=== PATIENT | female | born 1965 | race Caucasian/White ===

== ENCOUNTER → 2020-06-09 11:17 | Outpatient (CLI) | payer BC, SELFPAY | PROVIDERS: PCP Family Medicine; Visit Provider Family Medicine | DX: Z20.828 Contact with and (suspected) exposure to other viral communicable diseases (principal); U07.1 COVID-19 | CPT/HCPCS: U0003 ==

== ENCOUNTER → 2021-09-19 08:19 | Outpatient (CLI) | payer BC, SELFPAY ==
[2021-09-19 13:10] LABS: Adenovirus,PCR Not Detected (NotDetected); Bordetella Pertussis Not Detected (NotDetected); Chlamydophila Pneumoniae, PCR Not Detected (NotDetected); Coronavirus 19, PCR Not Detected (NotDetected); Coronavirus NL63 Not Detected (NotDetected); Coronavirus OC43 Not Detected (NotDetected); Coronovirus HKU1,PCR Not Detected (NotDetected); Human Metapneumovirus Not Detected (NotDetected); Influenza A, PCR Not Detected (NotDetected); Influenza AH1, 2009 Not Detected (NotDetected); Influenza AH1, PCR Not Detected (NotDetected); Influenza AH3,PCR Not Detected (NotDetected); Influenza B, PCR Not Detected (NotDetected); Mycoplasma Pneumoniae, PCR Not Detected (NotDetected); Parainfluenza 1, PCR Not Detected (NotDetected); Parainfluenza 2, PCR Not Detected (NotDetected); Parainfluenza 3, PCR Not Detected (NotDetected); Parainfluenza 4, PCR Not Detected (NotDetected); Respiratory Syncytial Virus Not Detected (NotDetected); Rhinovirus/Enterovirus Not Detected (NotDetected)
[2021-09-19 13:18] LABS: Chloride 105 mmol/L (98-107); Sodium 137 mmol/L (136-145)
[2021-09-19 13:19] LABS: Potassium 4.1 mmoL/L (3.5-5.1)
[2021-09-19 13:21] LABS: Alanine Aminotransferase 34 U/L (12-78); Albumin Level 4.1 g/dl (3.5-5.0); Alkaline Phosphatase 97 U/L (38-126); Anion Gap 7.1 mEq/L (5-15); Aspartate Amino Transferase 49 U/L (14-36); Bilirubin,Total 0.3 mg/dl (0.2-1.3); Blood Urea Nitrogen 14 mg/dl (7-17); Carbon Dioxide 29 mmol/L (22.0-30.0); Cholesterol 186 mg/dl (140-200); Estimated Glomerular Filt Rate 87 ml/min (>60); GFR (African American) 105 ML/MIN (>60); Triglycerides 154 mg/dl (30-150); VLDL Cholesterol 31 mg/dL (0-40)
[2021-09-19 13:22] LABS: Albumin/Globulin Ratio 1.4 (1.1-1.8); Calcium 7.9 mg/dl (8.4-10.2); Chol/HDL Ratio 5.3 (1-3.5); Globulin 2.9 g/dL (1.3-3.2); Glucose 87 mg/dl (74-100); HDL Cholesterol 35 mg/dl (40-60)
[2021-09-19 13:28] LABS: Basophils % 0.6 % (0.1-2.0); Eosinophils # 0.1 K/mm3 (0.0-0.4); Eosinophils % 1.9 % (0.1-12.0); Hematocrit 42.9 % (37.0-47.0); Hemoglobin 13.5 g/dL (12.2-16.2); Lymphocytes % 31.8 % (10-50); Mean Corpuscular HGB Conc 31.5 g/dL (31.8-35.4); Mean Corpuscular Hemoglobin 29.6 pg (27.0-31.2); Mean Corpuscular Volume 93.8 fl (81-99); Mean Platelet Volume 8.1 fl (7.4-10.4); Monocytes # 0.3 K/mm3 (0.1-1.0); Monocytes % 9.7 % (1.7-9.3); Neutrophils # 1.7 K/mm3 (1.8-7.8); Neutrophils % 56.1 % (37.0-80.0); Platelet Count 288 K/mm3 (142-424); Red Blood Count 4.57 M/mm3 (4.20-5.40); Red Cell Distribution Width 12.8 % (11.5-17.5); White Blood Count 3.1 K/mm3 (4.8-10.8)
[2021-09-19 13:33] LABS: Direct LDL Cholesterol 105.67 mg/dL (100-129)
[2021-09-19 13:53] LABS: Hemoglobin A1C 5.6 % (4.0-6.0)
[2021-09-19 15:31] LABS: 25-OH Vitamin D, Total 50.1 ng/mL (30-100)
[2021-09-19 17:43] LABS: Coronavirus 229E Detected (NotDetected)
== END ==
PROVIDERS: PCP Family Medicine; Visit Provider Family Medicine
DX: U07.1 COVID-19 (principal)
CPT/HCPCS: 36415; 80053; 80061; 82306; 83036; 85025; 87581; 87632; 87798; C9803; U0003; U0005

== ENCOUNTER → 2022-05-31 15:23 | Outpatient (CLI) | payer BC, SELFPAY ==
[2022-05-31 18:55] LABS: Basophils % 0.5 % (0.1-2.0); Eosinophils # 0.1 K/mm3 (0.0-0.4); Eosinophils % 1.6 % (0.1-12.0); Hematocrit 43.1 % (37.0-47.0); Hemoglobin 13.5 g/dL (12.2-16.2); Lymphocytes # 1.4 K/mm3 (0.7-4.5); Lymphocytes % 32.5 % (10-50); Mean Corpuscular HGB Conc 31.4 g/dL (31.8-35.4); Mean Corpuscular Hemoglobin 29.3 pg (27.0-31.2); Mean Corpuscular Volume 93.3 fl (81-99); Mean Platelet Volume 9.3 fl (7.4-10.4); Monocytes # 0.4 K/mm3 (0.1-1.0); Monocytes % 9.6 % (1.7-9.3); Neutrophils # 2.3 K/mm3 (1.8-7.8); Neutrophils % 55.7 % (37.0-80.0); Platelet Count 379 K/mm3 (142-424); Red Blood Count 4.62 M/mm3 (4.20-5.40); Red Cell Distribution Width 13.3 % (11.5-17.5); White Blood Count 4.1 K/mm3 (4.8-10.8)
[2022-05-31 18:58] LABS: Alanine Aminotransferase 38 U/L (12-78); Albumin Level 4.3 g/dl (3.5-5.0); Albumin/Globulin Ratio 1.7 (1.1-1.8); Alkaline Phosphatase 138 U/L (38-126); Anion Gap 14.3 mEq/L (5-15); Aspartate Amino Transferase 46 U/L (14-36); Bilirubin,Total 0.6 mg/dl (0.2-1.3); Blood Urea Nitrogen 15 mg/dl (7-17); Calcium 8.9 mg/dl (8.4-10.2); Carbon Dioxide 30 mmol/L (22.0-30.0); Chloride 101 mmol/L (98-107); Cholesterol 249 mg/dl (140-200); Estimated Glomerular Filt Rate 87 ml/min (>60); GFR (African American) 105 ML/MIN (>60); Globulin 2.5 g/dL (1.3-3.2); Glucose 105 mg/dl (74-100); HDL Cholesterol 50 mg/dl (40-60); Potassium 4.3 mmoL/L (3.5-5.1); Sodium 141 mmol/L (136-145); Total Protein,Serum 6.8 g/dl (6.3-8.2); Triglycerides 120 mg/dl (30-150); VLDL Cholesterol 24 mg/dL (0-40)
[2022-05-31 19:29] LABS: Thyroid Stimulating Hormone 1.79 uIU/mL (0.465-4.68)
[2022-05-31 19:44] LABS: Hemoglobin A1C 5.7 % (4.0-6.0)
[2022-05-31 19:49] LABS: Vitamin B12 483 pg/mL (239-931)
[2022-05-31 20:14] LABS: Direct LDL Cholesterol 164.96 mg/dL (100-129)
== END ==
PROVIDERS: PCP Nurse Practitioner; Visit Provider Nurse Practitioner
DX: E78.5 Hyperlipidemia, unspecified (principal); J30.9 Allergic rhinitis, unspecified; F41.9 Anxiety disorder, unspecified; E55.9 Vitamin D deficiency, unspecified; Z79.899 Other long term (current) drug therapy
CPT/HCPCS: 80053; 80061; 82043; 82306; 82607; 83036; 84443; 85025

== ENCOUNTER → 2022-07-28 11:50 | Outpatient (CLI) | payer BC, SELFPAY ==
[2022-07-28 18:08] LABS: Adenovirus,PCR Not Detected (NotDetected); Bordetella Pertussis Not Detected (NotDetected); Chlamydophila Pneumoniae, PCR Not Detected (NotDetected); Coronavirus 229E Not Detected (NotDetected); Coronavirus NL63 Not Detected (NotDetected); Coronavirus OC43 Not Detected (NotDetected); Coronovirus HKU1,PCR Not Detected (NotDetected); Human Metapneumovirus Not Detected (NotDetected); Influenza A, PCR Not Detected (NotDetected); Influenza AH1, 2009 Not Detected (NotDetected); Influenza AH1, PCR Not Detected (NotDetected); Influenza AH3,PCR Not Detected (NotDetected); Influenza B, PCR Not Detected (NotDetected); Mycoplasma Pneumoniae, PCR Not Detected (NotDetected); Parainfluenza 1, PCR Not Detected (NotDetected); Parainfluenza 2, PCR Not Detected (NotDetected); Parainfluenza 3, PCR Not Detected (NotDetected); Parainfluenza 4, PCR Not Detected (NotDetected); Respiratory Syncytial Virus Not Detected (NotDetected); Rhinovirus/Enterovirus Not Detected (NotDetected)
[2022-07-28 18:49] LABS: Basophils # 0.1 K/mm3 (0-0.2); Basophils % 0.6 % (0.1-2.0); Eosinophils % 0.3 % (0.1-12.0); Hematocrit 43.9 % (37.0-47.0); Lymphocytes # 0.6 K/mm3 (0.7-4.5); Lymphocytes % 7.1 % (10-50); Mean Corpuscular Hemoglobin 29.9 pg (27.0-31.2); Mean Corpuscular Volume 93.6 fl (81-99); Mean Platelet Volume 9.2 fl (7.4-10.4); Monocytes # 0.6 K/mm3 (0.1-1.0); Monocytes % 6.3 % (1.7-9.3); Neutrophils # 7.7 K/mm3 (1.8-7.8); Neutrophils % 85.6 % (37.0-80.0); Platelet Count 338 K/mm3 (142-424); Red Blood Count 4.69 M/mm3 (4.20-5.40); Red Cell Distribution Width 13.2 % (11.5-17.5)
[2022-07-28 18:53] LABS: MANUAL DIFFERENTIAL MANUAL DIFFERENTIAL (MANUAL DIFF)
[2022-07-28 19:15] LABS: Eosinophils % 1 % (0-3); Lymphocytes % 12 % (10-50); Monocytes % 4 % (2-9); Neutrophils % 83 % (42-76); Platelet Estimate Normal; RBC Morphology Normal; Total Cells Counted 100
[2022-07-28 22:07] LABS: Coronavirus 19, PCR Detected (NotDetected)
== END ==
PROVIDERS: PCP Family Medicine; Visit Provider Family Medicine
DX: U07.1 COVID-19 (principal); J06.9 Acute upper respiratory infection, unspecified
CPT/HCPCS: 85007; 85025; 87581; 87632; 87798; C9803; U0003; U0005

== ENCOUNTER → 2023-05-31 08:26 | Outpatient (CLI) | payer BC, SELFPAY ==
[2023-05-31 18:16] LABS: Basophils % 0.7 % (0.1-2.0); Eosinophils # 0.2 K/mm3 (0.0-0.4); Eosinophils % 4.1 % (0.1-12.0); Hemoglobin 14.8 g/dL (12.2-16.2); Lymphocytes # 1.4 K/mm3 (0.7-4.5); Lymphocytes % 30.2 % (10-50); Mean Corpuscular Hemoglobin 30.8 pg (27.0-31.2); Mean Corpuscular Volume 93.1 fl (81-99); Monocytes # 0.5 K/mm3 (0.1-1.0); Monocytes % 10.2 % (1.7-9.3); Neutrophils # 2.6 K/mm3 (1.8-7.8); Neutrophils % 54.8 % (37.0-80.0); Platelet Count 321 K/mm3 (142-424); Red Blood Count 4.83 M/mm3 (4.20-5.40); White Blood Count 4.7 K/mm3 (4.8-10.8)
[2023-05-31 18:36] LABS: Alanine Aminotransferase 39 U/L (12-78); Albumin Level 4.6 g/dl (3.5-5.0); Albumin/Globulin Ratio 1.5 (1.1-1.8); Alkaline Phosphatase 108 U/L (38-126); Aspartate Amino Transferase 49 U/L (14-36); Bilirubin,Total 0.5 mg/dl (0.2-1.3); Blood Urea Nitrogen 13 mg/dl (7-17); Calcium 9.4 mg/dl (8.4-10.2); Carbon Dioxide 31 mmol/L (22.0-30.0); Chloride 102 mmol/L (98-107); Chol/HDL Ratio 5.4 (1-3.5); Cholesterol 247 mg/dl (140-200); Estimated Glomerular Filt Rate 87 ml/min (>60); GFR (African American) 105 ML/MIN (>60); Glucose 99 mg/dl (74-100); HDL Cholesterol 46 mg/dl (40-60); Sodium 141 mmol/L (136-145); Total Protein,Serum 7.6 g/dl (6.3-8.2); Triglycerides 128 mg/dl (30-150); VLDL Cholesterol 26 mg/dL (0-40)
[2023-05-31 18:47] LABS: Direct LDL Cholesterol 153.56 mg/dL (100-129)
[2023-05-31 18:53] LABS: Hemoglobin A1C 5.5 % (4.0-6.0)
[2023-05-31 19:00] LABS: 25-OH Vitamin D, Total 46.9 ng/mL (30-100)
[2023-05-31 19:53] LABS: Creatinine,Urine Random 192 mg/dL (Not Estab.)
[2023-05-31 19:55] LABS: Microalbumin/Creatinine Ratio 14.2
== END ==
PROVIDERS: PCP Nurse Practitioner; Visit Provider Nurse Practitioner
DX: E55.9 Vitamin D deficiency, unspecified (principal); E78.5 Hyperlipidemia, unspecified; F41.9 Anxiety disorder, unspecified; I34.1 Nonrheumatic mitral (valve) prolapse; J30.9 Allergic rhinitis, unspecified; Z68.27 Body mass index [BMI] 27.0-27.9, adult
CPT/HCPCS: 80053; 80061; 82043; 82306; 82570; 83036; 84443; 85025

== ENCOUNTER → 2023-06-13 08:34 | Outpatient (CLI) | payer BC, SELFPAY | PROVIDERS: PCP Nurse Practitioner; Visit Provider Nurse Practitioner | DX: N30.01 Acute cystitis with hematuria (principal) | CPT/HCPCS: 87086 ==

== ENCOUNTER 2023-09-01 22:46 | Outpatient (CLI) | payer BC, SELFPAY ==
[2023-09-01 19:47] LABS: Alanine Aminotransferase 43 U/L (12-78); Albumin Level 4.4 g/dl (3.5-5.0); Albumin/Globulin Ratio 1.8 (1.1-1.8); Alkaline Phosphatase 118 U/L (38-126); Anion Gap 9.6 mEq/L (5-15); Aspartate Amino Transferase 45 U/L (14-36); Bilirubin,Total 0.4 mg/dl (0.2-1.3); Blood Urea Nitrogen 12 mg/dl (7-17); Calcium 9.2 mg/dl (8.4-10.2); Carbon Dioxide 31 mmol/L (22.0-30.0); Chloride 105 mmol/L (98-107); Cholesterol 163 mg/dl (140-200); Estimated Glomerular Filt Rate 86 ml/min (>60); GFR (African American) 104 ML/MIN (>60); Globulin 2.4 g/dL (1.3-3.2); Glucose 95 mg/dl (74-100); HDL Cholesterol 41 mg/dl (40-60); Potassium 4.6 mmoL/L (3.5-5.1); Sodium 141 mmol/L (136-145); Total Protein,Serum 6.8 g/dl (6.3-8.2); Triglycerides 76 mg/dl (30-150); VLDL Cholesterol 15 mg/dL (0-40)
== END 2023-09-01 23:59 ==
LOC: LAB.DROPOF 22:47
PROVIDERS: PCP Nurse Practitioner; Visit Provider Nurse Practitioner
DX: E78.5 Hyperlipidemia, unspecified (principal)
CPT/HCPCS: 80053; 80061

== ENCOUNTER 2023-10-11 18:55 | Outpatient (CLI) | payer BC, SELFPAY | END 2023-10-11 23:59 | LOC: LAB.DROPOF 18:55 | PROVIDERS: PCP Nurse Practitioner; Visit Provider Nurse Practitioner | DX: Z79.899 Other long term (current) drug therapy (principal); R31.9 Hematuria, unspecified; Z87.442 Personal history of urinary calculi; R10.32 Left lower quadrant pain; R30.0 Dysuria | CPT/HCPCS: 87086 ==

== ENCOUNTER 2024-03-21 09:13 | Outpatient (CLI) | payer BC, SELFPAY ==
[2024-03-21 19:23] LABS: Alanine Aminotransferase 36 U/L (12-78); Albumin Level 4.1 g/dl (3.5-5.0); Albumin/Globulin Ratio 1.4 (1.1-1.8); Alkaline Phosphatase 99 U/L (38-126); Anion Gap 9.6 mEq/L (5-15); Aspartate Amino Transferase 45 U/L (14-36); Bilirubin,Total 0.6 mg/dl (0.2-1.3); Blood Urea Nitrogen 14 mg/dl (7-17); Carbon Dioxide 30 mmol/L (22.0-30.0); Chloride 106 mmol/L (98-107); Chol/HDL Ratio 3.9 (1-3.5); Cholesterol 181 mg/dl (140-200); Estimated Glomerular Filt Rate 103 ml/min (>60); GFR (African American) 125 ML/MIN (>60); Globulin 2.9 g/dL (1.3-3.2); Glucose 93 mg/dl (74-100); HDL Cholesterol 46 mg/dl (40-60); Potassium 4.6 mmoL/L (3.5-5.1); Sodium 141 mmol/L (136-145); Triglycerides 116 mg/dl (30-150); VLDL Cholesterol 23 mg/dL (0-40)
[2024-03-21 19:33] LABS: Direct LDL Cholesterol 95.51 mg/dL (100-129)
== END 2024-03-21 23:59 | disposition home or self-care (01) ==
LOC: LAB.DROPOF 03-22 12:25
PROVIDERS: PCP Nurse Practitioner; Visit Provider Nurse Practitioner
DX: E78.5 Hyperlipidemia, unspecified (principal)
CPT/HCPCS: 80053; 80061

== ENCOUNTER 2024-11-21 10:27 | Outpatient (CLI) | payer BC, SELFPAY ==
[2024-11-21 18:22] LABS: Basophils % 0.8 % (0.1-2.0); Eosinophils # 0.1 Kmm3 (0.0-0.4); Hematocrit 43.9 % (37.0-47.0); Lymphocytes # 1.2 K/mm3 (0.7-4.5); Lymphocytes % 30.1 % (10-50); Mean Corpuscular HGB Conc 31.9 g/dL (31.8-35.4); Mean Corpuscular Hemoglobin 29.7 pg (27.0-31.2); Mean Platelet Volume 10.4 fl (7.4-10.4); Monocytes # 0.5 K/mm3 (0.1-1.0); Monocytes % 11.9 % (1.7-9.3); Neutrophils # 2.2 K/mm3 (1.8-7.8); Neutrophils % 54.9 % (37.0-80.0); Nucleated Red Blood Cells # 0 10^3/uL; Nucleated Red Blood Cells % 0 %; Platelet Count 305 K/mm3 (142-424); Red Blood Count 4.72 M/mm3 (4.20-5.40); Red Cell Distribution Width 13.2 % (11.5-17.5); Red Cell Distribution Width-SD 45.1 fL
[2024-11-21 18:49] LABS: Alanine Aminotransferase 40 U/L (12-78); Albumin Level 4.2 g/dl (3.5-5.0); Albumin/Globulin Ratio 1.5 (1.1-1.8); Alkaline Phosphatase 99 U/L (38-126); Anion Gap 13.1 mEq/L (5-15); Aspartate Amino Transferase 46 U/L (14-36); Bilirubin,Total 0.8 mg/dl (0.2-1.3); Blood Urea Nitrogen 17 mg/dl (7-17); Calcium 9.2 mg/dl (8.4-10.2); Carbon Dioxide 30 mmol/L (22.0-30.0); Chloride 104 mmol/L (98-107); Chol/HDL Ratio 3.3 (1-3.5); Cholesterol 166 mg/dl (140-200); Estimated Glomerular Filt Rate 103 ml/min (>60); GFR (African American) 124 ML/MIN (>60); Globulin 2.8 g/dL (1.3-3.2); Glucose 84 mg/dl (74-100); HDL Cholesterol 50 mg/dl (40-60); Potassium 5.1 mmoL/L (3.5-5.1); Sodium 142 mmol/L (136-145); Triglycerides 126 mg/dl (30-150); VLDL Cholesterol 25 mg/dL (0-40)
[2024-11-21 18:57] LABS: Microalbumin/Creatinine Ratio 5.3
[2024-11-21 19:01] LABS: Creatinine,Urine Random 204 mg/dL (Not Estab.); Direct LDL Cholesterol 79.07 mg/dL (100-129)
[2024-11-21 19:06] LABS: 25-OH Vitamin D, Total 36.9 ng/mL (30-100)
[2024-11-21 19:20] LABS: Thyroid Stimulating Hormone 1.14 uIU/mL (0.465-4.68)
[2024-11-21 19:34] LABS: Hemoglobin A1C 5.5 % (4.0-6.0)
[2024-11-21 19:35] LABS: Hepatitis C Ab Qual. W/ RFX NEGATIVE (Negative)
[2024-11-21 19:39] LABS: Vitamin B12 521 pg/mL (239-931)
[2024-11-22 11:11] LABS: HIV Combo NEGATIVE (Negative)
== END 2024-11-21 23:59 | disposition home or self-care (01) ==
LOC: LAB.DROPOF 11-22 09:39
PROVIDERS: PCP Nurse Practitioner; Visit Provider Nurse Practitioner
DX: Z13.1 Encounter for screening for diabetes mellitus (principal); Z13.0 Encounter for screening for diseases of the blood and blood-forming organs and certain disorders involving the immune mechanism; I34.1 Nonrheumatic mitral (valve) prolapse; E78.5 Hyperlipidemia, unspecified; J30.9 Allergic rhinitis, unspecified; F41.9 Anxiety disorder, unspecified; E55.9 Vitamin D deficiency, unspecified; Z68.28 Body mass index [BMI] 28.0-28.9, adult; E66.3 Overweight
CPT/HCPCS: 80053; 80061; 82043; 82306; 82570; 82607; 83036; 84443; 85025; 86803; 87389

== ENCOUNTER 2025-05-27 10:54 | Outpatient (CLI) | payer BC, SELFPAY ==
--- OUTSIDE RECORDS SUMMARY | 2024-03-03 05:00 | XMS_ITS ---
Author Organization [facility] Address [address] [place] [address] Care Team Providers Care Contact Center Rep Name Role Phone Migration, Provider Unavailable Unavailable Allergies Allergen (clinical drug ingredient) Drug/Non Drug Allergy documented on EMR Reaction Allergy Type Onset Date Status cefaclor Medications: Ceclor (uncoded) Unspecified Allergy Active Medications Medication SIG (Take, Route, Fr equency, Duration) Notes Start Date End Date Status Nadolol tablet oral Active Metoprolol Succinate ER 1 tablet oral QD Active Social History Tobacco Use: Social History Observation Description Date Smoking Status WARNING: Information temporarily unavailable Social History Drugs/Alcohol: Social Info Question Answer Notes Drugs Have you used drugs other than those for medical reasons in the past 12 months? Never 10/22/2020 - 02/16/2018 - Alcohol Screen Did you have a drink containing alcohol in the past year? 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 Travel outside of the [place]: Travel History: Uses seat belts 10/22/2020 - 02/16/2018 - Encounters Encounter Location Date Provider Diagnosis [facility] [address] [place] [address] 03/03/2024 Provider Migration Plan Of Treatment No Information Progress Notes * Meagan GAODOB: [birth year] (59 yo F)Acc No.[id number]:03/03/2024 Patient: Meagan TORRES :1965 A ge:58 Y S ex:Female Address:[address] [place] [address] [place], [address] Subjective: * Chief Complaints: * Medical History: *NO SIGNIFICANT GENETIC HISTORY 7 [place]: Cholesterol Screen - Yes 10/12 7 [place]: Sexually active - Yes 7 [place]: Greater than 5 lifetime sexual partners 7 [place]: Last Pap Smear 07-27-12 WNL;07/13 7 [place]: Self breast exam- yes 7 [place]: Mammogram 09-26-13 WNL 7 [place]: Dairy Product Use - Yes Anxiety Disorder, Generalized: 1996 Endometriosis: 1991 Urinary Stress Mitral valve prolapse: 1984 Lexapro, oral, tablet, Notes: 10. Flonase Allergy Relief, nasal, puff, Notes: 50. Vitamin D3, oral, tablet, Notes: 1,000. 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 S exual Activity/Contraception: C ontraception: N one. * OB History: P regnancy History (GPA) T otal Pregnancies 3 , F ull Term 2 , P remature?0, A B. Induced 1 , A B. Spontaneous 0 , E ctopics 0 , M ultiple Births 0 , L iving 2 . G P G ravida: 3 , P gabriella: 2 . P regnancy # 1: B irthDate :09/12/1989 BirthLbs :7 BirthOzs :11 Comment : Weight: 7#11 DeliveryType :C-Sect. LaborLength :12 Place :ses PTL :N Sex :F. P regnancy # 2: B irthDate :07/11/1993 BirthLbs :9 BirthOzs :8 Comment : Weight: 9#8 DeliveryType : LaborLength :4 Place :ses PTL :N Sex :F. * Surgical History: section 09/12/89 * Family History: F amily History Verified.. Aunt: Breast Cancer, family HX, Colon Cancer, GRANDMOTHER, Brother: Asthma, Heart Disease, Colon Cancer, GRANDMOTHER, clotting disorder, Diabetes Mellitus, Type Unspecified, Father: Lung cancer, Mother: Hypercholesterolemia (Isolated), Heart Disease. * Social History: T obacco Use: T obacco Control (Standard) T obacco use: N ever 10/22/2020 - 05/16/2019 -. D rugs/Alcohol: D rugs H ave you used drugs other than those for medical reasons in the past 12 months??Never 10/22/2020 - 02/16/2018 -. A lcohol Screen D id you have a drink containing alcohol in the past year? N ever 10/22/2020 - 05/16/2019 - 02/16/2018 -. M iscellaneous: E xercise: No Exercise. 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 Travel outside of the [place]: Travel History: Uses seat belts 10/22/2020 - 02/16/2018 -. H ousehold: Mahesh Vizcaino arital status: . * Medications: T akingNadolol tablet oral Metoprolol Succinate ER 1 tablet oral QD Taking Nadolol tablet oral Taking Metoprolol Succinate ER 1 tablet oral QD * Allergies: M edications: Ceclor: Unspecified - AllergyyesAllergies Verified. * * Date:
[2025-05-27 16:17] LABS: Hematocrit 42.2 % (37.0-47.0); Hemoglobin 13.3 g/dL (12.2-16.2); Immature Granulocytes % 0.5 %; Mean Corpuscular HGB Conc 31.5 g/dL (31.8-35.4); Mean Corpuscular Hemoglobin 29.3 pg (27.0-31.2); Mean Corpuscular Volume 93.0 fl (81-99); Nucleated Red Blood Cells % 0 %; Platelet Count 315 K/mm3 (142-424); Red Blood Count 4.54 M/mm3 (4.20-5.40); Red Cell Distribution Width-SD 43.0 fL; White Blood Count 4.3 K/mm3 (4.8-10.8)
[2025-05-27 17:38] LABS: Alanine Aminotransferase 45 U/L (12-78); Albumin Level 3.5 g/dl (3.5-5.0); Albumin/Globulin Ratio 1.2 (1.1-1.8); Alkaline Phosphatase 140 U/L (38-126); Anion Gap 10.0 mEq/L (5-15); Aspartate Amino Transferase 44 U/L (14-36); Bilirubin,Total 0.7 mg/dl (0.2-1.3); Blood Urea Nitrogen 20 mg/dl (7-17); Calcium 9.0 mg/dl (8.4-10.2); Carbon Dioxide 29 mmol/L (22.0-30.0); Chloride 103 mmol/L (98-107); Cholesterol 172 mg/dl (140-200); Creatine Kinase 65 U/L (30-135); Creatinine,Serum 0.70 mg/dl (0.52-1.04); Estimated Glomerular Filt Rate 86 ml/min (>60); GFR (African American) 104 ML/MIN (>60); Globulin 3.0 g/dL (1.3-3.2); Glucose 98 mg/dl (74-100); HDL Cholesterol 51 mg/dl (40-60); Magnesium 1.9 mg/dl (1.6-2.3); Potassium 5.0 mmoL/L (3.5-5.1); Sodium 137 mmol/L (136-145); Total Protein,Serum 6.5 g/dl (6.3-8.2); Triglycerides 60 mg/dl (30-150)
[2025-05-27 17:44] LABS: Phosphorous 3.9 mg/dl (2.5-4.5)
[2025-05-27 18:09] LABS: Thyroid Stimulating Hormone 0.85 uIU/mL (0.465-4.68)
[2025-05-27 18:28] LABS: Vitamin B12 421 pg/mL (239-931)
[2025-05-28 05:09] LABS: Hepatitis B Surface Antigen Negative (Negative)
--- OUTSIDE RECORDS SUMMARY | 2025-05-28 11:20 | XMS_ITS | Clinical Summary ---
Author Organization [facility] Address [address] [place] [address] Phone Care Team Providers Care Batt Packer Name Role Phone Cecilia Tadeo APRN Primary Care Provider [phone] Allergies Active Allergy Reactions Criticality Noted Date Comments Cefaclor Itching Low 01/24/2015 Clindamycin Hcl Rash Low 10/01/2024 Medications fluticasone (FLONASE) 50 mcg/actuation Nasl [place], Suspension by Nasal route daily. Active metoprolol succinate (TOPROL-XL) 25 mg Oral Tablet Sustained Release 24 hr Take 1 Tab by mouth nightly. 30 Tab 6 9 Active PARoxetine (PAXIL) 40 mg Oral Tablet Take 40 mg by mouth every morning. Active Cholecalciferol , Vitamin D3, (VITAMIN D3) 5,000 unit Oral Tablet Take 5,000 mg by mouth daily. Active loratadine (CLARITIN) 10 mg Oral Tablet Take 10 mg by mouth daily. Active omeprazole (PRILOSEC) 20 mg Oral Capsule, Delayed Release(E.C.) Take 20 mg by mouth daily. Active fish oil omega 3-dha-epa 300-1,000 mg Oral Capsule, Delayed Release(E.C.) Take 1,200 mg by mouth daily. Active multivit,calc,m ins/iron/folic (ONE-A-DAY WOMENS FORMULA ORAL) Take by mouth. Activ e Coenzyme Q10 100 mg Oral Capsule Take by mouth. Activ e atorvastatin (LIPITOR) 10 mg Oral Tablet Take 10 mg by mouth daily. Active vit C-zinc citrate-elderbe rry (Feast) 45-3.75-50 mg Oral Tablet, Chewable Take 50 mg by mouth daily. Active ejibpzjb-mwu-we lic acid-jqd291 120 mcg- 37.5 mg Oral Tablet, Chewable Take 37.5 mg by mouth daily. Sunitha Fusion Active lactobacillus rhamnosus, GG, (CULTURELLE) 10 billion cell Oral Capsule Take 1 Capsule by mouth daily. Active sodium,potassiu m,mag sulfates (SUPREP BOWEL PREP KIT) 17.5-3.13-1.6 gram Oral Recon SolnIndications :Family hx colonic polyps,Family history of colon cancer Take 1 kit per physician instructions 354 mL 5 Active Active Problems Problem Noted Date Diagnosed Date Palpitations 10/09/2018 Anxiety 10/09/2018 Resolved Problems Problem Noted Date Diagnosed Date Resolved Date MVP (mitral valve prolapse) 10/09/2018 10/27/2018 Unstable angina 10/09/2018 02/07/2019 Surgical History Surgery Date Site/Laterality Comments SECTION 08/01/1989 - 07/31/1990 Medical History Medical History Date Comments Mitral valve prolapse Endometriosis Anxiety Heart murmur Nephrolithiasis Family History Medical History Relation Name Comments Cancer Brother Nii Colon Heart Attack Brother Nii Cancer Father Bill Lung Hypertension Father Bill Colon Cancer Maternal Aunt Colon Cancer Maternal Grandmother Heart Attack Mother Danuta Heart Failure Mother Danuta High Cholesterol Mother Danuta Ovarian Cancer Other cousin Breast Cancer Neg Hx Relation Name Status Comments Brother Nii Father Bill Maternal Aunt Maternal Grandmother Mother Danuta Other cousin Social History Tobacco Use Types Packs/Day Years Used Date Smoking Tobacco: Never Smokeless Tobacco: Never Tobacco Cessation:Counseling Given: Not Answered Alcohol Use Standard Drinks/Week Comments No 0 (1 standard drink = 0.6 oz pur e alcohol) Sexually Active Control Partners Comments Yes Post-menopausal Male Comments No Sex and Gender Information Value Date Recorded Sex Assigned at Not on file Legal Sex Female 3:40 PM EDT Gender Identity Not on file Sexual Orientation Not on file Obstetrics History Para Term AB IAB SAB Ectopic Multiple Livin g Live Births 3 2 2 1 2 2 Date Outcome GA Total Labor Labor/2nd/3rd Weight Sex Type Anes PTL Carmela A1 A5 Name Clin Term Vag-S pont Living Term CSP Living AB Last Filed Vital Signs Vital Sign Reading Time Taken Comments Blood Pressure 106/52 10/15/2024 2:25 PM EDT Pulse 62 10/15/2024 2:25 PM EDT Temperature 36.5 C (97.7 F) 10/15/2024 12:34 PM EDT Respiratory Rate 18 10/15/2024 2:10 PM EDT Oxygen Saturation 98% 10/15/2024 2:25 PM EDT Inhaled Oxygen Concentration - - Weight 73.9 kg (163 lb) 10/29/2024 1:36 PM EDT Height 162.6 cm (5' 4 ) 10/29/2024 1:36 PM EDT Body Mass Index 27.98 10/29/2024 1:36 PM EDT Plan of Treatment Health Maintenance Due Date Last Done Comments Annual Wellness Exam 1969 Hepatitis B Vaccine (1 of 3 - 19+ 3-dose series) 1985 Cologuard 2011 FIT 2011 Sigmoidoscopy 2011 Virtual Colonography 2011 Pneumococcal Vaccine 50+ (1 of 1 - PCV) 2016 Zoster (1 of 2) 2016 COVID-19 Vaccine (1 - season) 2025 Influenza Vaccine (#1) 2025 05/31/2022, 2020 Breast Cancer Screening 10/29/2026 10/30/19 25, 11/17/2023, 11/01/2022, Additional history exists Pap Smear 06/14/2027 06/14/2024, /10/2020, 10/22/2020, Additional history exists DTaP/TDaP/Td (3 - Td or Tdap) 10/12/2028 10/12/2018, 03/16/2015 Cervical Cancer Screening 06/14/2029 HPV/Pap Cotest 06/14/2029 06/14/2024 Colon Cancer Screening 10/15/2029 Colonoscopy 10/15/2029 10/15/2024, 09/29/2018 Meningococcal B Vaccine Aged Out No l onger eligible based on patient's age to complete this topic Procedures Procedure Name Priority Date/Time Associated Diagnosis Comments MM MAMMO DIGITAL JOSEY SCREEN BILAT Routine 10/29/2024 1:36 PM EDT Encounter for screening mammogram for malignant neoplasm of breast COLONOSCOPY Routine 10/15/2024 2:08 PM EDT Family hx colonic polyps Family history of colon cancer ULTRASOUND SPEC CYTOLOGY REQUEST (PAP ONLY) Routine 06/14/2024 4:12 PM EST Well female exam with routine gynecological exam from Last 3 Months or Most Recently Relevant to Health Maintenance Results * MM MAMMO DIGITAL JOSEY SCREEN BILAT (10/29/2024 1:36 PM EDT) Anatomical Region Laterality Modality Breast Bilateral Mammography 10/29/2024 1:36 PM EDT Impressions 10/30/2024 12:42 PM EDT Negative (URN-Eqmrrwur-2) RECOMMENDATION: Routine Screening Mammogram in 1 Year Bilateral . . COMMENTS: DISCLAIMER *The patient was notified by MyChart or mail of the results for this examination. *The patient's information was entered into a reminder system with a target due date for the next breast imaging, in accordance with the [employer] and the Society of Breast Imaging recommendations. *Breast Imaging has a false negative rate of 15%. *Any patient with a palpable abnormality, unexplained by breast imaging, should be managed on a clinical basis by the attending physician. Narrative 10/30/2024 12:42 PM EDT EXAM: MM MAMMO DIGITAL JOSEY SCREEN BILAT EXAM DATE: 10/29/2024 1:36 PM INDICATION: Z12.31-Encounter for screening mammogram for malignant neoplasm of kfctga-HZS-98-CM COMPARISON STUDIES: Compared with prior studies the most recent being 11/17/2023 MM MAMMO DIGITAL JOSEY SCREEN BILAT at [facility] 11/01/2022 MM MAMMO DIGITAL JOSEY SCREEN BILAT at [facility] 10/30/2021 MM MAMMO DIGITAL JOSEY SCREEN BILAT at [facility] TISSUE DENSITY: There are scattered areas of fibroglandular density. FINDINGS: No mammographic evidence of malignancy. Procedure Note Bobbi Gray MD - 10/30/2024 EXAM: MM MAMMO DIGITAL JOSEY SCREEN BILAT EXAM DATE: 10/29/2024 1:36 PM INDICATION: Z12.31-Encounter for screening mammogram for malignantneoplasm of wroxct-JGN-91-CM COMPARISON STUDIES: Compared with prior studies the most recent being 11/17/2023 MM MAMMO DIGITAL JOSEY SCREEN BILAT at [facility] 11/01/2022 MM MAMMO DIGITAL JOSEY SCREEN BILAT at [facility] 10/30/2021 MM MAMMO DIGITAL JOSEY SCREEN BILAT at [facility] TISSUE DENSITY: There are scattered areas of fibroglandular density. FINDINGS: No mammographic evidence of malignancy. IMPRESSION: Negative (MRZ-Axyfqkpt-5) RECOMMENDATION: Routine Screening Mammogram in 1 Year Bilateral . . COMMENTS: DISCLAIMER *The patient was notified by MyChart or mail of the results for this examination. *The patient's information was entered into a reminder system with atarget due date for the next breast imaging, in accordance with the [employer] and the Society of Breast Imaging recommendations. *Breast Imaging has a false negative rate of 15%. *Any patient with a palpable abnormality, unexplained by breast imaging,should be managed on a clinical basis by the attending physician. Cecilia Tadeo APRN [facility] MAMMOGRAPHY ORDERABLES Fin al Result * COLONOSCOPY (10/15/2024 2:08 PM EDT) Anatomical Region Laterality Modality Endoscopy Narrative 10/15/2024 2:15 PM EDT Table formatting from the original result was not included. Findings Internal medium hemorrhoids; no bleeding was observed Five sessile polyps measuring smaller than 5 mm in the descending colon, sigmoid colon and rectosigmoid; performed cold forceps biopsy with complete en bloc removal All observed locations appeared normal. Normal colon mucosa Normal Terminal ileum Recommendation There is no recommended follow-up for this procedure. Continue with daily fiber and titrate miralax as tolerated to control constipation I will send result letter Trial of anucort. Resume home medications. Follow up in office. Pre-Procedure Diagnosis / Indication Family history of colon cancer, Family hx colonic polyps Post-Procedure Diagnosis Family history of colon cancer, Family hx colonic polyps Staff Staff Role No Staff Documented Medications See Anesthesia Record. Preprocedure A history and physical has been performed, and patient medication allergies have been reviewed. The patient's tolerance of previous anesthesia has been reviewed. The risks and benefits of the procedure and the sedation options and risks were discussed with the patient. All questions were answered and informed consent obtained. ASA 2 - Patient with mild systemic disease Details of the Procedure The patient underwent monitored anesthesia care, which was administered by an anesthesia professional. The patient's blood pressure, heart rate, level of consciousness, oxygen, respirations, ECG and ETCO2 were monitored throughout the procedure. A digital rectal exam was performed. The scope was introduced through the anus and advanced to the cecum. Retroflexion was performed in the rectum. Bowel prep was adequate. The patient experienced no blood loss. The procedure was not difficult. The patient tolerated the procedure well. There were no apparent adverse events. Patient provided education and educated on specific discharge instructions. Patient educated on medications given during the procedure and new medications for discharge. Patient verbalizes understanding of discharge education. Patient stable and awaiting transport for discharge. Events Procedure Events Event Event Time ENDO SCOPE IN TIME 10/15/2024 1:54 PM ENDO CECUM REACHED 10/15/2024 1:59 PM ENDO SCOPE WITHDRAW BEGIN 10/15/2024 1:59 PM [facility] LUME TI REACHED 10/15/2024 2:00 PM ENDO SCOPE OUT TIME 10/15/2024 2:07 PM Specimens ID Type Source Tests Collected by Time 1 : polyps Tissue Large Intestine, Left/Descending Colon [facility]G PATHOLOGY ORDER Mendoza Hanley MD 10/15/2024 140 Mendoza Hanley MD ENDOSCOPY PROCEDURE ORDERABLE S Final Result * ULTRASOUND SPEC CYTOLOGY REQUEST (PAP ONLY) (06/14/2024 4:12 PM EST) CASE REPORT Gynecologic Cytology Report Case: [id number] Authorizing Provider: Kate Warren DO Collected: 06/14/2024 161 Ordering Location: [facility] Received: 06/14/2024 1612 First Screen: Samuel Fregoso CT Specimen: LIQUID-BASED PAP - CERVICAL, Cervix 06/19/2024 10:18 AM EST [facility] PAP FINAL DIAGNOSIS Negative for intraepithelial lesion or malignancy 06/19/2024 10:18 AM EST [facility] at 1018 EST MICROSCOPIC DESCRIPTION Microscopic examination is performed and the findings corroborate the diagnosis. 06/19/2024 10:18 AM EST [facility] PAP SMEAR ADEQUACY Satisfactory for evaluation 06/19/2024 10:18 AM EST [facility] ENDOCERVICAL T-ZONE Transformation Zone Absent. This is not unusual in a post-menopausal woman. 06/19/2024 10:18 AM EST [facility] EMBEDDED IMAGES 10:18 AM EST [facility] PAP DISCLAIMER The Pap Smear is a screening test that aids in the detection of cervical cancer and cancer precursors. Both false positive and false negative results can occur. The test should be used at regular intervals, and positive results should be confirmed before definitive therapy. Processed using the ThinPrep Track Grinder Operator Automated cytology screening device ([employer]). 06/19/2024 10:18 AM [facility] Thin Prep SPECIMEN FROM UTERINE CERVIX / Unknown 06/14/2024 4:12 PM EST 06/14/2024 4:12 PM EST Kate Warren DO CYTOLOGY ORDERABLES Fin al Result Performing Organization Address City/State/[facility] Co de Phone Number [facility] [address] [place] [address] from Last 3 Months or Most Recently Relevant to Health Maintenance Insurance R[employer]UKA O ANTHGRISELDA PPO RENUKA PPO Care Teams Batt Packer Relationship Specialty Start Date End Date Cecilia Tadeo APRN [address] [place] [address] PCP - General Nurse Practitioner 10/15/24
--- OUTSIDE RECORDS SUMMARY | 2025-05-28 11:20 | XMS_ITS | Encounter Summary ---
Author Organization [facility] [address] Care Team Providers Care Engineer Specialist Name Role Phone Rudy Jesus Primary Care Provider [phone] Cecilia Tadeo APRN Primary Care Provider [phone] Encounter Details Date Type Department Care Team (Latest Contact Info) Description 10/22/2020 Lab Requisition [facility] [place] [address] Mendoza Stacy MD Encounter for screening for malignant neoplasm of cervix; Encounter for screening for human papillomavirus (HPV) Social History Tobacco Use Types Packs/Day Years Used Date Smoking Tobacco: Never Smokeless Tobacco: Never Alcohol Use Standard Drinks/Week Comments No 0 (1 standard drink = 0.6 oz pur e alcohol) Comments No Sex and Gender Information Value Date Recorded Sex Assigned at Not on file Legal Sex Female 3:40 PM EDT Gender Identity Not on file Sexual Orientation Not on file COVID-19 Exposure Response Date Recorded In the last month, have you been in contact with someone who was confirmed or suspected to have Coronavirus / COVID-19? No / Unsure 10/22/2020 2:11 PM EDT documented as of this encounter Plan of Treatment Not on file documented as of this encounter Procedures Procedure Name Priority Date/Time Associated Diagnosis Comments HPV HIGH RISK WITH REFLEX TO GENOTYPE Routine 10/22/2020 5:21 PM EDT Encounter for screening for malignant neoplasm of cervix Encounter for screening for human papillomavirus (HPV) RELIGION INSTRUCTOR CYTOLOGY REQUEST (PAP ONLY) Routine 10/22/2020 4:09 PM EDT Encounter for screening for malignant neoplasm of cervix Encounter for screening for human papillomavirus (HPV) documented in this encounter Results * HPV HIGH RISK WITH REFLEX TO GENOTYPE (10/22/2020 5:21 PM EDT) HPV HR Reflex Not Detected Not Detected 021 3:10 PM EDT [facility] Thin Prep SPECIMEN FROM UTERINE CERVIX / Unknown 10/22/2020 5:21 PM EDT 10/22/2020 7:21 PM EDT Narrative PREFERRED Kaliki - 10/23/2020 3:10 PM EDT This test was performed using the FDA Approved APTIMA HPV mRNA assay which detects E6/E7 messenger RNA of High Risk HPV types (16, 18, 31, 33, 35, 39, 45, 51, 52, 56, 58, 59, 66, and 68). This assay is intended for use in women 21 years or older with ASC-US cervical cytology or women 30 years or older. This assay is not intended to substitute for regular cervical cytology screening. Detection of HPV using the APTIMA HPV Assay does not differentiate HPV types and cannot evaluate persistence of any one type. The use of this assay has not been evaluated for the management of HPV vaccinated women, women with prior ablative or excisional therapy, hysterectomy, or who are . Sensitivities may be affected by collection methods, stage of infection, and the presence of interfering substances. Results of this assay should be interpreted in conjunction with other available laboratory and clinical data. us Mendoza Stacy MD MICROBIOLOGY - GENERAL ORD ERABLES Final Result [facility] [address] [facility] , [place] [place] [address] * RELIGION INSTRUCTOR CYTOLOGY REQUEST (PAP ONLY) (10/22/2020 4:09 PM EDT) CASE REPORT Gynecologic Cytology Report Case: [id number] Authorizing Provider: Mendoza Stacy MD Collected: 10/22/2020 1609 Ordering Location: [facility] Received: 10/23/2020 1003 First Screen: Lupe Corrales CT Specimen: LIQUID-BASED PAP - CERVICAL/ENDOCERV ICAL, Cervix, Endocervical 10/24/2020 9:22 AM EDT [facility] PAP FINAL DIAGNOSIS Negative for intraepithelial lesion or malignancy 10/24/2020 9:22 AM EDT [facility] at 0922 EDT MICROSCOPIC DESCRIPTION Microscopic examination is performed and the findings corroborate the diagnosis 10/24/2020 9:22 AM EDT [facility] PAP SMEAR ADEQUACY Satisfactory for evaluation 10/24/2020 9:22 AM EDT [facility] ENDOCERVICAL T-ZONE Transformation zone present 10/24/2020 9:22 AM EDT [facility] EMBEDDED IMAGES 9:[address] [facility] PAP DISCLAIMER The Pap Smear is a screening test that aids in the detection of cervical cancer and cancer precursors. Both false positive and false negative results can occur. The test should be used at regular intervals, and positive results should be confirmed before definitive therapy. Processed using the ThinPrep Prep Person Automated cytology screening device ([employer]). 10/24/2020 9:[address] [facility] Thin Prep ENDOCERVICAL STRUCTURE / Unknown 10/22/2020 4:09 PM EDT 10/23/2020 10:03 AM EDT Mendoza Stacy MD CYTOLOGY ORDERABLES Final Result Performing Organization Address City/State[facility] Co de Phone Number [facility] [address] [place] [address] documented in this encounter Visit Diagnoses Diagnosis Encounter for screening for malignant neoplasm of cervix Screening for malignant neoplasm of the cervix Encounter for screening for human papillomavirus (HPV) Special screening examination for human papillomavirus (HPV) documented in this encounter Care Teams Engineer Specialist Relationship Specialty Start Date End Date Rudy Jesus [address] [place] [address] [address] [place] [address] PCP - General Family Medicine 09/02/11 10/14/24 Cecilia Tadeo APRN [address] [facility] [address] [place] [address] PCP - General Nurse Practitioner 10/15/24 documented as of this encounter
--- OUTSIDE RECORDS SUMMARY | 2025-05-28 11:20 | XMS_ITS | Patient Health Record ---
Author Organization [facility] Address [address] [place] [address] Care Team Providers Care Nursing Admin Name Role Phone Migration, Provider Unavailable Unavailable Allergies Allergen (clinical drug ingredient) Drug/Non Drug Allergy documented on EMR Reaction Allergy Type Onset Date Status cefaclor Medications: Ceclor (uncoded) Unspecified Allergy Active Reason For Referral No Information Medications Medication SIG (Take, Route, Fr equency, [...] Uses seat belts 10/22/2020 - 02/16/2018 - Plan Of Treatment No Information Medical (General) History Medical History History ICD Code *NO SIGNIFICANT GENETIC HISTORY 7 [place]: Cholesterol Screen - Yes 10/12 7 [place]: Sexually active - Yes 7 [place]: Greater than 5 lifetime sexual partners 7 [place]: Last Pap Smear 07-27-12 WNL; 7 [place]: Self breast exam- yes 7 [place]: Mammogram 2-26-14 WNL 7 [place]: Dairy Product Use - Yes Anxiety Disorder, Generalized: 1996 Endometriosis: 1991 Urinary Stress Mitral valve prolapse: 1984 Surgical History Surgery Date(Month/Year) section 09/12/89
--- OUTSIDE RECORDS SUMMARY | 2025-05-28 11:20 | XMS_ITS | Patient Health Record ---
[facility] Organization [facility] [address] [address] [place] [id number] Care Team Providers Care Display Manager Name Role Phone Rudy Jesus Primary Care Provider Allergies Allergen (clinical drug ingredient) Drug/Non Drug Allergy documented on EMR Reaction Allergy Type Onset Date Status sulfamethoxazole / trimethoprim Bactrim Unknown Drug Allergy Active budesonide Budesonide Unknown Drug Allergy Activ e cefaclor Cefaclor Unknown Drug Allergy Active Claritin-D 12 Hour Unknown Drug Allergy Active ibuprofen Ibuprofen Unknown Drug Allergy Active promethazine Promethazine Unknown Drug Allergy A ctive Reason For Referral No Information Medications Medication SIG (Take, Route, Frequency, Duration) Notes Start Date End Date Status methylPREDNISolone 4 MG as directed - 6 tabs on day 1, 5 tabs on day 2, 4 tabs on day 3, 3 tabs on day 4, 2 tabs on day 5, 1 tab on day 6 orally 09/22/2021 Active Fluticasone Propionate 50 MCG/ACT 1 spray(s) intranasally once a day; Duration: 30 day(s) Active PARoxetine HCl 40 MG 1 tab(s) orally onc e a day; Duration: 90 days Active Loratadine 10 MG 1 tab(s) orally once a day 03/12/2021 Not-Taking Metoprolol Succinate ER 25 MG 1 tab(s) orally once a day; Duration: 30 day(s) Active Vitamin D 50 MCG (1999 UT) 1 tab(s) oral ly once a day; Duration: 30 day(s) 2021 Active Amoxicillin-Pot Clavulanate 875-125 MG 1 tab(s) orally every 12 hours; Duration: 10 day(s) 09/22/2021 Active Singulair 10 MG 1 tab(s) orally once a day; Duration: 90 days 03/12/2021 Active Albuterol Sulfate HFA 108 (90 Base) MCG/ACT 2 puff(s) inhaled every 6 hours and prn SOB or wheezing; Duration: 30 day(s) 09/15/2020 Not-Taking Immunizations Vaccine Route Administration Date Status Comme nts Fluzone Quad (6months&older) IM Intramuscular 2021 Administered Hepatitis B (20 and more) IM Intramuscular 04/13/2007 Admi nistered Hepatitis B (20 and more) IM Intramuscular 05/11/2007 Admi nistered Hepatitis B (20 and more) IM Intramuscular 10/25/2007 Admi nistered Tetanus Tdap-Adacel (over 7yrs) IM Intramuscular 04/13/2007 Administered Tetanus Tdap-Adacel (over 7yrs) Unknown 03/16/2015 Administered Tetanus Tdap-Adacel (over 7yrs) IM Intramuscular 10/12/2018 Administered tuberculin (ppd) ID Intradermal 04/13/2007 Administered Problems Problem Type SNOMED Code ICD Code Onset Dates Problem Status W/U Status Risk Notes Problem Vitamin D deficiency (42709918) Vitamin D deficiency (E55.9) Active confirmed Problem Amenorrhea (05844074) Amenorrhea (N91.2) Active confirmed Problem Generalized anxiety disorder (53065892) Generalized anxiety disorder (F41.1) Active confirmed Problem Mixed hyperlipidemia (401092993) Mixed hyperlipidemia (E78.2) Active confirmed Problem Constipation (12421051) Constipation, unspecified constipation type (K59.00) Active confirmed Problem Gastroesophageal reflux disease (105938718) Gastroesophageal reflux disease, esophagitis presence not specified (K21.9) Active confirmed Problem Mitral valve prolapse (285115566) Mitral valve prolapse (I34.1) Active confirmed Problem Restless legs (00783674) RLS (restless legs syndrome) (G25.81) Active confirmed Problem Asthma without status asthmaticus (00028378) Asthma, unspecified asthma severity, unspecified whether complicated, unspecified whether persistent (J45.909) Active confirmed Problem Allergic rhinitis (61025831) Allergic rhinitis, unspecified seasonality, unspecified trigger (J30.9) Active confirmed Problem Gastroesophageal reflux disease (801059277) Gastroesophageal reflux disease, unspecified whether esophagitis present (K21.9) Active confirmed Plan Of Treatment No Information Insurance Providers Payer Name Payer Address Payer Phone Subscriber Number Group Number Insured Name Patient Relationship to Insured Coverage Start Date Coverage End Date [employer] [facility] [address] [place] [address] [id number] MAURI GAO Spouse - patient is the spouse of the insured Medications Administered Medication Instructions Date of Administration Dosage Notes Depo- Medrol 40 mg/ml 07/09/2008 1.5 mL Dexamethasone 11/10/2005 1 mL Dexamethasone 04/12/2006 1 mL Dexamethasone 10/28/2006 1.0 mL Dexamethasone 11/18/2017 1 mL Medical (General) History Medical History History ICD Code allergic rhinitis sinusitis MVP Palpitations HLP kidney stones colonoscopy - 2018 mammogram - 09/2020 pap - 2020 Surgical History Surgery Date(Month/Year) c section Hospitalization History Reason Date(Month/Year) same [facility] 10/08/18-
== END 2025-05-27 23:59 ==
LOC: LAB.DROPOF 05-28 11:17
PROVIDERS: PCP Nurse Practitioner; Visit Provider Nurse Practitioner
DX: E78.5 Hyperlipidemia, unspecified (principal); I34.1 Nonrheumatic mitral (valve) prolapse; J30.9 Allergic rhinitis, unspecified; F41.9 Anxiety disorder, unspecified; Z11.59 Encounter for screening for other viral diseases; R25.2 Cramp and spasm
CPT/HCPCS: 80053; 80061; 82550; 82607; 83735; 84100; 84443; 85025; 87340

== ENCOUNTER 2025-07-19 14:33 | Outpatient (CLI) | payer BC, SELFPAY ==
--- OUTSIDE RECORDS SUMMARY | 2025-07-19 14:36 | XMS_ITS | Clinical Summary ---
Author Organization [facility] Address [address] [place] [address] Phone Care Team Providers Care Medical Housekeeper Name Role Phone Cecilia Tadeo APRN Primary Care Provider [phone] Allergies Active Allergy Reactions Criticality Noted Date Comments Cefaclor Itching Low 01/24/2015 Clindamycin Hcl Rash Low 10/01/2024 Medications fluticasone (FLONASE) 50 mcg/actuation Nasl [place], Suspension by Nasal route daily. Active metoprolol [...] mouth daily. Active vit C-zinc citrate-elderbe rry (BioWizard) 45-3.75-50 mg Oral Tablet, Chewable Take 50 mg by mouth daily. Active aceherpx-rei-pe lic acid-nda395 120 mcg- 37.5 mg Oral Tablet, Chewable [...] 10/29/2024 1:36 PM EDT Plan of Treatment Upcoming Encounters Date Type Department Care Team (Late st Contact Info) Description 11/18/2025 3:30 PM EDT Office Visit [facility] [address] [place] [address] Kate Warren, DO [address] [facility] [address] [place], [place] [id number] Health Maintenance Due Date Last Done Comments Annual Wellness Exam 1969 Hepatitis B Vaccine (1 of 3 - 19+ 3-dose series) 1985 Cologuard 2011 FIT 2011 Sigmoidoscopy 2011 Virtual Colonography 2011 Pneumococcal Vaccine 50+ (1 of 1 - PCV) 2016 Zoster (1 of 2) 2016 COVID-19 Vaccine (1 - season) 2025 Influenza Vaccine (#1) 2025 05/31/2022, 2020 Breast Cancer Screening 10/29/2026 10/30/19, 11/17/2023, 11/01/2022, Additional history exists Pap Smear 06/14/2027 06/14/2024, 09/30, 10/22/2020, Additional history exists DTaP/TDaP/Td (3 - [...] colonic polyps Family history of colon cancer GEAR MACHINIST CYTOLOGY REQUEST (PAP ONLY) Routine 06/14/2024 4:12 PM EST Well female exam with routine gynecological exam from Last 3 Months or Most Recently Relevant to Health Maintenance Results * MM MAMMO DIGITAL JOSEY SCREEN BILAT (10/29/2024 1:36 PM EDT) Anatomical Region Laterality Modality Breast Bilateral Mammography 10/29/2024 1:36 PM EDT Impressions 10/30/2024 12:42 PM EDT Negative ([id number]-8) RECOMMENDATION: Routine Screening Mammogram in 1 Year Bilateral . . COMMENTS: DISCLAIMER *The patient was notified by MyChart or mail of the results for this examination. *The patient's information was entered into a reminder system with a target due date for the next breast imaging, in accordance with the [employer] and the Society of [...] for screening mammogram for malignant neoplasm of [id number] COMPARISON STUDIES: Compared with prior studies the most recent being 11/17/2023 MM MAMMO DIGITAL JOSEY SCREEN BILAT at [facility] 11/01/2022 MM MAMMO DIGITAL JOSEY SCREEN BILAT at [facility] 10/30/2021 MM MAMMO DIGITAL JOSEY SCREEN BILAT at [facility] TISSUE DENSITY: There are scattered areas of fibroglandular density. FINDINGS: No mammographic evidence of malignancy. Procedure Note Bobbi Gray MD - 10/30/2024 EXAM: MM MAMMO DIGITAL JOSEY SCREEN BILAT EXAM DATE: 10/29/2024 1:36 PM INDICATION: Z12.31-Encounter for screening mammogram for malignantneoplasm of [id number] COMPARISON STUDIES: Compared with prior studies the most recent being 11/17/2023 MM MAMMO DIGITAL JOSEY SCREEN BILAT at [facility] 11/01/2022 MM MAMMO DIGITAL JOSEY SCREEN BILAT at [facility] 10/30/2021 MM MAMMO DIGITAL JOSEY SCREEN BILAT at [facility] TISSUE DENSITY: There are scattered areas of fibroglandular density. FINDINGS: No mammographic evidence of malignancy. IMPRESSION: Negative (BVC-Hfyqrlsb-6) RECOMMENDATION: Routine Screening Mammogram in 1 Year Bilateral . . COMMENTS: DISCLAIMER *The patient was notified by MyChart or mail of the results for this examination. *The patient's information was entered into a reminder system with atarget due date for the next breast imaging, in accordance with the [employer] [employer] and the Society of Breast Imaging recommendations. *Breast Imaging has a false negative rate of 15%. *Any patient with a palpable abnormality, unexplained by breast imaging,should be managed on a clinical basis by the attending physician. Cecilia Tadeo MAIL PROCESSING EQUIPMENT MECHANIC IMG MAMMOGRAPHY ORDERABLES Fin al Result * COLONOSCOPY [...] [facility] PATHOLOGY ORDER Mendoza Hanley MD 10/15/2024 2258 us Mendoza Hanley MD ENDOSCOPY PROCEDURE ORDERABLE S Final Result * GEAR MACHINIST CYTOLOGY REQUEST (PAP ONLY) (06/14/2024 4:12 PM EST) CASE REPORT Gynecologic Cytology Report Case: [id number] Authorizing Provider: Kate Warren DO Collected: 06/14/2024 1612 Ordering Location: [facility] Received: 06/14/2024 1612 First Screen: Samuel Fregoso CT Specimen: LIQUID-BASED PAP - CERVICAL, Cervix 06/19/2024 10:18 AM EST [facility] PAP FINAL DIAGNOSIS Negative for intraepithelial lesion or malignancy 06/19/2024 10:18 AM EST [facility] at 1018 EST MICROSCOPIC DESCRIPTION Microscopic examination is performed and the findings corroborate the diagnosis. 06/19/2024 10:18 AM EST [facility] PAP SMEAR ADEQUACY Satisfactory for evaluation 06/19/2024 10:18 AM EST [facility] ENDOCERVICAL T-ZONE Transformation Zone Absent. This is not unusual in a post-menopausal woman. 06/19/2024 10:18 AM EST [facility] EMBEDDED IMAGES 10:18 AM EST [facility] PAP DISCLAIMER The Pap Smear is a screening test that aids in the detection of cervical cancer and cancer precursors. Both false positive and false negative results can occur. The test should be used at regular intervals, and positive results should be confirmed before definitive therapy. Processed using the ThinPrep Stencil Sprayer Automated cytology screening device ([employer]). 06/19/2024 10:18 AM [facility] Thin Prep SPECIMEN FROM UTERINE CERVIX / Unknown 06/14/2024 4:12 PM EST 06/14/2024 4:12 PM EST us Kate Warren DO CYTOLOGY ORDERABLES Fin al Result [facility] [address] [place] [address] from Last 3 Months or Most Recently Relevant to Health Maintenance Insurance ANTHEM PPO ANTHEM PPO ANTHEM PPO Care Teams Medical Housekeeper Relationship Specialty Start Date End Date Cecilia Tadeo APRN [address] [facility] [address] [place] [address] PCP - General Nurse Practitioner 10/15/24
--- OUTSIDE RECORDS SUMMARY | 2025-07-19 14:36 | XMS_ITS | Patient Health Record ---
Author Organization [facility] Address [address] [place] [address] Care Team Providers Care Hvac Refrigeration Technician Name Role Phone Migration, Provider Unavailable Unavailable [...] ICD Code *NO SIGNIFICANT GENETIC HISTORY 7 [place]: Cholesterol Screen - Yes 10/12 7 [place]: Sexually active - Yes 7 [place]: Greater than 5 lifetime sexual partners 7 [place]: Last Pap Smear 07-27-12 WNL; 7 [place]: Self breast exam- yes 7 [place]: Mammogram 2-26-14 WNL 7 [place]: Dairy Product Use - Yes Anxiety Disorder, Generalized: 1996 Endometriosis: 1991 Urinary Stress Mitral valve prolapse: 1984 Surgical History Surgery Date(Month/Year) section 09/12/89
--- OUTSIDE RECORDS SUMMARY | 2025-07-19 14:36 | XMS_ITS | Encounter Summary ---
Author Organization [place] Address [facility] [place] [address] Care Team Providers Care Writing Tutor Name Role Phone Rudy Jesus Primary Care Provider [phone] Cecilia Tadeo APRN Primary Care Provider [phone] Encounter Details Date Type Department Care Team (Latest Contact Info) Description 10/22/2020 Lab Requisition [facility] [place] [address] Mendoza Stacy MD Encounter for screening for [...] as of this encounter Plan of Treatment Upcoming Encounters Date Type Department Care Team (Late st Contact Info) Description 11/18/2025 3:30 PM EDT Office Visit [facility] [address] [place] [address] Kate Warren, DO [address] [address] documented as of this encounter Procedures Procedure Name Priority Date/Time Associated Diagnosis Comments HPV HIGH RISK WITH REFLEX TO GENOTYPE Routine 10/22/2020 5:21 PM EDT Encounter for screening for malignant neoplasm of cervix Encounter for screening for human papillomavirus (HPV) MAP MOUNTER CYTOLOGY REQUEST (PAP ONLY) Routine 10/22/2020 4:09 PM EDT Encounter for screening for malignant neoplasm of cervix Encounter for screening for human papillomavirus (HPV) documented in this encounter Results * HPV HIGH RISK WITH REFLEX TO GENOTYPE (10/22/2020 5:21 PM EDT) HPV HR Reflex Not Detected Not Detected 021 3:10 PM EDT [employer] Thin Prep SPECIMEN FROM UTERINE CERVIX / Unknown 10/22/2020 5:21 PM EDT 10/22/2020 7:21 PM EDT Narrative [employer] - 10/23/2020 3:10 PM EDT This test [...] MICROBIOLOGY - GENERAL ORD ERABLES Final Result [employer] [facility] [address] [facility] , [place] [address] * MAP MOUNTER CYTOLOGY REQUEST (PAP ONLY) (10/22/2020 4:09 PM EDT) CASE REPORT Gynecologic Cytology Report Case: [id number] Authorizing Provider: Mendoza Stacy MD Collected: 10/22/2020 1609 Ordering Location: [facility] Received: 10/23/2020 1003 First Screen: Lupe Corrales CT Specimen: LIQUID-BASED PAP - CERVICAL/ENDOCERV ICAL, Cervix, Endocervical 10/24/2020 9:22 AM EDT [facility] PAP FINAL DIAGNOSIS Negative for intraepithelial lesion or malignancy 10/24/2020 9:22 AM EDT [facility] at 0922 EDT MICROSCOPIC DESCRIPTION Microscopic examination is performed and the findings corroborate the diagnosis 10/24/2020 9:22 AM EDT [facility] PAP SMEAR ADEQUACY Satisfactory for evaluation 10/24/2020 9:22 AM EDT [facility] ENDOCERVICAL T-ZONE Transformation zone present 10/24/2020 9:22 AM EDT [facility] EMBEDDED IMAGES 9:22 AM EDT [facility] PAP DISCLAIMER The Pap Smear is a screening test that aids in the detection of cervical cancer and cancer precursors. Both false positive and false negative results can occur. The test should be used at regular intervals, and positive results should be confirmed before definitive therapy. Processed using the ThinPrep Chief Nuclear Medicine Technologist Automated cytology screening device ([employer]). 10/24/2020 9:22 AM EDT [facility] Thin Prep ENDOCERVICAL STRUCTURE / Unknown 10/22/2020 4:09 PM EDT 10/23/2020 10:03 AM EDT us Mendoza Stacy MD CYTOLOGY ORDERABLES Final Result [facility] [address] [place] [address] documented in this encounter Visit Diagnoses Diagnosis Encounter for screening for malignant neoplasm of cervix Screening for malignant neoplasm of the cervix Encounter for screening for human papillomavirus (HPV) Special screening examination for human papillomavirus (HPV) documented in this encounter Care Teams Writing Tutor Relationship Specialty Start Date End Date Rudy Jesus [address] [place], [place] [address] [place] [address] PCP - General Family Medicine 09/02/11 10/14/24 Cecilia Tadeo APRN [address] [place] [address] [address] [place] [id number] PCP - General Nurse Practitioner 10/15/24 documented as of this encounter
--- NOTE | 2025-07-19 15:15 | CA_ITS ---
APPROVED REPORT EXAM: Comprehensive 2D, Doppler, and color-flow Echocardiogram Tire Finisher: Lary Jacobs RT(R) Ht: 5 ft 4 in Wt: 165lbs BSA: 1.80 BP: 120/60 mmHg Indications: MVP, palpitations 2D Dimensions LVEF (Syed's) 63.50 % F: 54 - 74 LV Volume 64.30 mL F: 46 - 106 LV Volume Index 35.7 mL/m2 F: 29 - 61 LA Volume 17.30 mL LA Volume Index 9.61 mL/m2 (M/F) 16-34 EF AP4 61.30 % EF AP2 64.5 % EF BP 63.5 % GL Strain -19.1 % M-Mode Dimensions RVDd 2.18 cm (0.9-2.6) LA Diam 3.09 cm (1.9-4.0) LVDd 3.68 cm (3.5-5.7) LVDs 2.72 cm (3.5-5.7) IVSd 0.75 cm (0.6-1.1) PWd 0.68 cm (0.6-1.1) EF (Teich) 52.10% FS 26.10% EDV (Teich) 57.40 mL ESV (Teich) 27.50 mL LV Diastology E Decel Time 197 (160-240 msec) E/A Ratio 1.2 Mitral Valve MV E Max Jay. 70.0 (40-130 cm/s) MV A Velocity 58.0 (40-130 cm/s) E/A Ratio 1.22 MV PHT 58.0 ms Left Ventricle The left ventricle is normal size. Left ventricular systolic function is normal. The left ventricular ejection fraction is within the normal range. There is normal left ventricular wall thickness. There is normal LV segmental wall motion. The left ventricular diastolic function is normal. LVEF is 55% Right Ventricle The right ventricle is normal size. The right ventricular systolic function is normal. Atria The left atrium size is normal. The right atrium size is normal. There is no color Doppler evidence of interatrial shunt. Aortic Valve The aortic valve opens well. There is no hemodynamically significant aortic valvular stenosis. No aortic regurgitation is present. Mitral Valve Bileaflet mitral valve prolapse with present. No evidence of mitral valve stenosis. Trace mitral regurgitation is present. Tricuspid Valve The tricuspid valve leaflets are thin and pliable. Trace tricuspid regurgitation. There is insufficient TR jet to estimate RVSP. Pulmonic Valve The pulmonary valve is grossly normal in structure. Trace pulmonic valve regurgitation is present. Great Vessels The aortic root is normal in size. IVC is normal in size and collapses >50% with inspiration. Pericardium There is no pericardial effusion. Other Information Study Quality: Fair Conclusion Normal biventricular systolic function. Bileaflet MV prolapse is present, but no significant MR. No other significant valvular stenosis or regurgitation. Electronically signed by : Mariel Merino MD 07/28/2025 19:23:15
== END 2025-07-19 23:59 | disposition home or self-care (01) ==
LOC: RT 14:34
PROVIDERS: PCP Nurse Practitioner; Visit Provider Nurse Practitioner
DX: I34.1 Nonrheumatic mitral (valve) prolapse (principal)
CPT/HCPCS: 93306